=== PATIENT | female | born 1975 | race African-American/Black ===

== ENCOUNTER 2018-09-27 17:31 | Emergency (ER) | payer OTHER ==
[~2018-09-27] VITALS: Ht 152.4 cm; Wt 74.8 kg
--- NOTE | 2018-09-27 18:15 | NUR ---
PT TO ER BED 13. [id number]. NAD. ACCOMPANIED BY TO . PT CAME IN WITH COMPLAINT OF ABDOMINAL PAIN ON THE LEFT SIDE. AWAITING MD CARROLL.
--- NOTE | 2018-09-27 18:20 | NUR ---
IV ACCESS OBTAINED ON R HAND 20G.
[2018-09-27] MEDS ORDERED: IV NS 0.9% 1,000 ML BAG IV ONE (18:30)
[2018-09-27] MEDS ORDERED: ACETAMINOPHEN ES 500 MG TABLET PO ONE (18:30)
[2018-09-27] MEDS ORDERED: ONDANSETRON 4 MG TAB.RAPDIS SL ONE (18:30)
[2018-09-27 18:37] LABS: LYMPHOCYTES # (AUTO) 2.7 /CMM (0.8-4.8)
[2018-09-27] MEDS ORDERED: ACETAMINOPHEN ES 500 MG TABLET ONE (18:40)
[2018-09-27] MEDS ORDERED: ONDANSETRON 4 MG TAB.RAPDIS ONE (18:41)
[2018-09-27 18:43] LABS: BASOPHILS # (AUTO) 0.1 /CMM (0.0-0.2); BASOPHILS % (AUTO) 0.6 % (0.0-2.0); HEMATOCRIT 34 % (33-45); LYMPHOCYTES % (AUTO) 24.8 % (20.0-44.0); MEAN CORPUSCULAR HGB CONC 32 g/dl (31.0-36.0); MEAN CORPUSCULAR VOLUME 66 fL (82-100); MONOCYTES # (AUTO) 1.5 /CMM (0.1-1.30); MONOCYTES % (AUTO) 13.8 % (2.0-12.0); NEUTROPHILS # (AUTO) 6.6 /CMM (1.8-8.9); NEUTROPHILS % (AUTO) 60.8 % (43.0-81.0); PLATELET COUNT (AUTO) 423 /CMM (150-450); RED BLOOD CELL COUNT(AUTO) 5.18 MIL/uL (4.0-5.2); WHITE BLOOD COUNT (AUTO) 10.8 K/uL (4.3-11.0)
[2018-09-27 18:48] LABS: CALCIUM, SERUM 9.1 mg/dL (8.5-10.1); CREATININE 1.2 mg/dL (0.6-1.3); POTASSIUM 4.1 mmol/L (3.5-5.1)
[2018-09-27 18:51] LABS: APPEARANCE,URINE Clear (CLEAR); BILIRUBIN,URINE Negative (NEGATIVE); BLOOD, URINE Negative Ery/uL (NEGATIVE); COLOR,URINE Yellow (YELLOW); KETONES,URINE Negative (NEGATIVE); LEUKOCYTE ESTERASE ,URINE Negative (NEGATIVE); NITRITE, URINE Negative (NEGATIVE); PROTEIN,URINE Negative (NEGATIVE); UGLUCOSE Negative (NEGATIVE); UROBILINOGEN,URINE 0.2 EU/dL (0.2)
[2018-09-27 18:53] LABS: ALBUMIN 3.9 g/dL (3.4-5.0); BILIRUBIN,TOTAL 0.1 mg/dL (0.2-1.0); TOTAL PROTEIN, SERUM 7.8 g/dL (6.4-8.2)
[2018-09-27 20:03] VITALS: BP 125/88
--- NOTE | 2018-09-27 20:04 | NUR ---
IV ACCESS DC ON L HAND 20G
--- NOTE | 2018-09-27 20:19 | NUR ---
Patient discharged to the custody of [facility] in stable condition. Written and verbal after care instructions given to affirmative action officer and patient. Patient and officer verbalizes understanding of instruction. ok to book.
[2018-09-27 21:12] LABS: LYMPHOCYTES % (MANUAL) 28 % (16-48); MONOCYTES % (MANUAL) 11 % (0-11.0); NEUTROPHILS % (MANUAL) 61 (42-76)
== END 2018-09-27 20:24 ==
LOC: ER 17:40
DX: A08.4 Viral intestinal infection, unspecified (principal); I10 Essential (primary) hypertension
CPT/HCPCS: 36415; 80053; 81001; 83690; 84703; 85025; 93005; 96360; 99284; J7030; Q0162; 81000-TC